=== PATIENT | male | born 1995 | race Caucasian/White ===

== ENCOUNTER 2020-03-08 12:35 | Emergency (ER) | payer SELFPAY ==
[~2020-03-08] VITALS: Ht 157.5 cm; Wt 159.0 kg
[2020-03-08] MEDS ORDERED: IV NORMAL SALINE 1000ML BAG 1,000 ML IV ONE ×2 (13:00→13:45)
--- NOTE | 2020-03-08 13:03 | PHYS DOC ---
Past Medical History Past Medical History: Other Additional Past Medical Histor: ADHD Past Surgical History: No Surgical History Alcohol Use: None Drug Use: None General Adult EDM: Chief Complaint: SEIZURE HPI: HPI: Patient is a 25 year old male who presents with states he took 2 Percocets today and had a seizure that was unwitnessed. States he awoke on the floor. He states he does not have a prescription for Percocets but his cousin gives it to him. He states he usually takes Percocets for pain every day that he gets from his cousin. He states he usually takes 1 or 2. When asked what kind of pain he has been having he states just generally body pain because "sometimes your body hurt when you go through withdrawls". He states he has been not having any fevers and he denies pain incontinence when awaking. He denies any pain at this time. He states this morning he did vomit some bile. He states that a long time ago he had a seizure and he thinks a total of 4 seizures in his lifetime but he does not remember how long ago. He states he does not take any m edications for his seizures. He states he "saw a doctor once" a long time ago but does not know the name of the doctor. He denies doing any other kind of drugs. He states that he has a bad kidney but does not need dialysis and does not know why he has a "bad kidney." Review of Systems: Review of Systems: Neurologic: Syncope. Denies headache, focal weakness or sensory changes. [] Heart Score: Risk Factors: Risk Factors: DM, Current or recent (<one month) smoker, HTN, HLP, family history of CAD, obesity. Risk Scores: Score 0 - 3: 2.5% MACE over next 6 weeks - Discharge Home Score 4 - 6: 20.3% MACE over next 6 weeks - Admit for Clinical Observation Score 7 - 10: 72.7% MACE over next 6 weeks - Early Invasive Strategies Allergies: Allergies: Allergies Coded Allergies Type Severity Reaction Last Updated Verified No Known Drug Allergies 06/30/14 No Physical Exam: PE: Constitutional: Well developed, well nourished, no acute distress, non-toxic appearance. [] HENT: Normocephalic, atraumatic, bilateral external ears normal, oropharynx moist, no oral exudates, nose normal. [] Eyes: PERRLA, EOMI, conjunctiva normal, no discharge. [] Neck: Normal range of motion, no tenderness, supple, no stridor. [] Cardiovascular:Heart rate regular rhythm, no murmur [] Lungs & Thorax: Bilateral breath sounds clear to auscultation [] Abdomen: Bowel sounds normal, soft, no tenderness, no masses, no pulsatile masses. [] Skin: Warm, dry, no erythema, no rash. [] Back: No tenderness, no CVA tenderness. [] Extremities: No tenderness, no cyanosis, no clubbing, ROM intact, no edema. [] Neurologic: Alert and oriented X 3, normal motor function, normal sensory function, no focal deficits noted. [] Psychologic: Affect normal, judgement normal, mood normal. Normal physical exam [] EKG: EK and read by Dr Mejia. Sinus Rhythm and no STEMI[] Radiology/Procedures: Radiology/Procedures: [] Impression: [facility] [address] [place], [place] [id number] IMAGING REPORT Signed PATIENT: ANDERS WILCOX ACCOUNT: [id number] : 1995 LOCATION: ER AGE: 25 SEX: M EXAM STATUS: REG ER ORD. PHYSICIAN: IDRIS TOSCANO APRN REASON: syncope, fall PROCEDURE: CT HEAD AND CERVICAL SPINE WO CT Head W/O Contrast: History: Syncope and fall Comparison: none Axial images were obtained without contrast. The alicea and white matter appears normal and symmetrical for the patients age. There is no mass effect, extraaxial fluid collections or hydrocephalus. There is no gross bleed. There is no focal loss of alicea-white matter distinction to suggest acute ischemia, i.e. stroke. Impression: No acute findings. End impression CT C-Spine without contrast: Clinical History: Syncope and fall Technique: Axial helical images of the cervical spine were obtained without contrast, axial coronal and sagittal reconstruction was performed. Findings: There is no loss of vertebral body stature. There is no prevertebral soft tissue swelling. The vertebral bodies are well aligned. The C1-C2 relationship is normal. The visualized osseous structures appear normal. There is straightening of the normal cervical lordosis which can be positional or can be secondary to muscle spasm. Evaluation of the central canal is limited without contrast. Impression: No acute findings. Clinical correlation suggested. PQRS Compliance Statement: One or more of the following individualized dose reduction techniques were utilized for this examination: 1. Automated exposure control 2. Adjustment of the mA and/or kV according to patient size 3. Use of iterative reconstruction technique Electronically signed by: Roslyn Fernando III, MD (03/08/2020 1:57 PM) [id number] DICTATED and SIGNED BY: ROSLYN FERNANDO III, MD DATE: 03/08/20 1357 [facility] [address] [place] [address] IMAGING REPORT Signed PATIENT: ANDERS WILCOX ACCOUNT: [id number] : 1995 LOCATION: ER AGE: 25 SEX: M EXAM STATUS: REG ER ORD. PHYSICIAN: IDRIS TOSCANO APRN REASON: syncope PROCEDURE: PORTABLE CHEST 1V INDICATION: Syncope COMPARISON: None. FINDINGS: Single view of chest obtained. No focal airspace consolidation or pulmonary edema. Cardiac silhouette mildly prominent but likely secondary to portable technique. IMPRESSION: * No focal airspace consolidation or edema. Electronically signed by: Areli Carrion MD (03/08/2020 2:01 PM) [id number] DICTATED and SIGNED BY: ARELI CARRION MD DATE: 03/08/20 1401 Course & Med Decision Making: Course & Med Decision Making Pertinent Labs and Imaging studies reviewed. (See chart for details) He is alert and oriented. Speaks in full clear sentences. Ambulatory with a steady gait. Lungs are clear to auscultation all lobes. Patient did not bite his tongue and he is no broken or loose teeth. He has no injuries from the fall. He denies any neck or back pain. And there is no neck or back pain with palpation there is no bruising. Moves all extremities with full range of motion. He states he does not know how long he was unconscious. Skin pink warm and dry. PERRLA. Denies any visual changes, numbness or tingling, chest pain, shortness of air, fever, diarrhea, cough, dizziness, headache, abdominal pain, nausea, vision changes, focal weakness. Patient is positive for cocaine and marijuana. Patient is lactic is 3.1 so he may have had a seizure. Everything is negative in the physical and work-up findings. Patient has been alert and oriented and not had a seizure since he has been here. Patient has no complaints. Vital signs within normal limits. Patient is discharged home and given follow-up care. [] Dragon Disclaimer: Dragon Disclaimer: This electronic medical record was generated, in whole or in part, using a voice recognition dictation system. NIHSS Stroke Scale NIH Stroke Scale: NIH Stroke Scale Response (Comments) Value Level of Consciousness: 0 Alert/Responsive 0 LOC Questions: 0 Answers both correctly 0 LOC Commands: 0 Performs both tasks 0 Best Gaze: 0 Normal 0 Visual: 0 No visual loss 0 Facial Palsy: 0 Normal, symmetrical 0 Motor - Left Arm 0 No drift 0 Motor - Right Arm 0 No drift 0 Motor - Left Leg 0 No drift 0 Motor: Right Leg 0 No drift 0 Limb Ataxia: 0 Absent 0 Sensory: 0 No loss 0 Best Language: 0 Normal 0 Dysathria: 0 Normal 0 Extinction and Inattention: 0 Normal 0 Total 0 Departure Departure Impression: Primary Impression: Elevated lactic acid level Additional Impressions: Cocaine use Marijuana use Disposition: 01 HOME, SELF-CARE Condition: STABLE Referrals: NON,STAFF (PCP) Patient Instructions: Cocaine Abuse-Brief, Drug Abuse and Addiction-SportsMed, Marijuana Abuse-Brief Additional Instructions: Follow up with primary care provider. Drink plenty of fluids and stop taking drugs. IDRIS TOSCANO APRN Mar 08, 2020 13:03
[2020-03-08 13:05] LABS: BASO # 0.1 x10^3/uL (0.0-0.2); BASO % 1 % (0-3); EOS # 0.1 x10^3/uL (0.0-0.7); EOS % 1 % (0-3); HEMOGLOBIN 14.9 g/dL (13.0-17.5); LYMPH # 2.2 x10^3/uL (1.0-4.8); LYMPH % 19 % (24-48); MEAN CORPUSCULAR HEMOGLOBIN 30 pg (25-35); MEAN CORPUSCULAR HGB CONC 34 g/dL (31-37); MEAN CORPUSCULAR VOLUME 89 fL (79-100); MONO # 0.5 x10^3/uL (0.0-1.1); MONO % 4 % (0-9); NEUT # 9.1 x10^3/uL (1.8-7.7); NEUT % 76 % (31-73); PLATELET COUNT 286 x10^3/uL (140-400); RED BLOOD COUNT 4.95 x10^6/uL (4.30-5.70); RED CELL DISTRIBUTION WIDTH 13.9 % (11.5-14.5)
[2020-03-08 13:17] LABS: CALCIUM 8.8 mg/dL (8.5-10.1); CREATININE 0.7 mg/dL (0.7-1.3); GFR 139.8; POTASSIUM 4.4 mmol/L (3.5-5.1); PROTHROMBIN TIME PATIENT 12.8 SEC (11.7-14.0)
[2020-03-08 13:21] LABS: ACETAMIN < 2 mcg/ml (10-30); SALIC 3.9 mg/dL (2.8-20.0)
[2020-03-08 13:23] LABS: ALBUMIN 3.6 g/dL (3.4-5.0); ALBUMIN/GLOBULIN RATIO 0.9 (1.0-1.7); TOTAL BILIRUBIN 0.3 mg/dL (0.2-1.0); TOTAL PROTEIN 7.7 g/dL (6.4-8.2)
[2020-03-08 13:33] LABS: BILIRUBIN,URINE NEGATIVE (NEG); CLARITY,URINE CLEAR; COLOR,URINE YELLOW; NITRITE,URINE NEGATIVE (NEG); PROTEIN,URINE 30 mg/dL (NEG-TRACE)
[2020-03-08 13:39] LABS: BARBITURATES NEG (NEG); BENZODIAZEPINES NEG (NEG); CANNABINOIDS POS (NEG); COCAINE POS (NEG); METHADONE NEG (NEG); OPIATES NEG (NEG); PHENCYCLIDINE NEG (NEG)
[2020-03-08 13:49] LABS: AMPHETAMINE/METHAMPHETAMINE NEG (NEG)
--- NOTE | 2020-03-08 14:00 | RAD ---
CT Head W/O Contrast: History: Syncope and fall Comparison: none Axial images were obtained without contrast. The alicea and white matter appears normal and symmetrical for the patients age. There is no mass effect, extraaxial fluid collections or hydrocephalus. There is no gross bleed. There is no focal loss of alicea-white matter distinction to suggest acute ischemia, i.e. stroke. Impression: No acute findings. End impression CT C-Spine without contrast: Clinical History: Syncope and fall Technique: Axial helical images of the cervical spine were obtained without contrast, axial coronal and sagittal reconstruction was performed. Findings: There is no loss of vertebral body stature. There is no prevertebral soft tissue swelling. The vertebral bodies are well aligned. The C1-C2 relationship is normal. The visualized osseous structures appear normal. There is straightening of the normal cervical lordosis which can be positional or can be secondary to muscle spasm. Evaluation of the central canal is limited without contrast. Impression: No acute findings. Clinical correlation suggested. PQRS Compliance Statement: One or more of the following individualized dose reduction techniques were utilized for this examination: 1. Automated exposure control 2. Adjustment of the mA and/or kV according to patient size 3. Use of iterative reconstruction technique Electronically signed by: Glen Almonte III, MD (03/08/2020 1:57 PM) [id number]
--- NOTE | 2020-03-08 14:03 | RAD ---
INDICATION: Syncope COMPARISON: None. FINDINGS: Single view of chest obtained. No focal airspace consolidation or pulmonary edema. Cardiac silhouette mildly prominent but likely secondary to portable technique. IMPRESSION: * No focal airspace consolidation or edema. Electronically signed by: Scotty Mason MD (03/08/2020 2:01 PM) [id number]
[2020-03-08 14:06] LABS: BACTERIA,URINE 0 /HPF (0-FEW); RBC,URINE 0 /HPF (0-2); WBC,URINE OCC /HPF (0-4)
[2020-03-08 14:42] VITALS: BP 120/75
--- NOTE | 2020-03-08 15:44 | EKG ---
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
== END 2020-03-08 15:10 | disposition home or self-care (01) ==
LOC: ER 12:35
DX: R74.0 Nonspecific elevation of levels of transaminase and lactic acid dehydrogenase [LDH] (principal); R55 Syncope and collapse; R11.10 Vomiting, unspecified; R56.9 Unspecified convulsions; F12.90 Cannabis use, unspecified, uncomplicated; F14.90 Cocaine use, unspecified, uncomplicated; F90.8 Attention-deficit hyperactivity disorder, other type
CPT/HCPCS: 36415; 70450; 71045; 72125; 80053; 80307; 80329; 81001; 83605; 84484; 85025; 85610; 93005; 96360; 99285; G0480; J7030

== ENCOUNTER 2021-04-10 19:52 | Emergency (ER) | payer SELFPAY ==
[~2021-04-10] VITALS: Ht 177.8 cm; Wt 145.0 kg
[2021-04-10 21:05] LABS: AMPHETAMINE/METHAMPHETAMINE NEG (NEG); BARBITURATES NEG (NEG); BENZODIAZEPINES POS (NEG); CANNABINOIDS POS (NEG); COCAINE POS (NEG); METHADONE NEG (NEG); OPIATES NEG (NEG); PHENCYCLIDINE NEG (NEG)
[2021-04-10 21:34] LABS: BASO # 0.1 x10^3/uL (0.0-0.2); BASO % 0 % (0-3); EOS % 0 % (0-3); HEMATOCRIT 49.3 % (39.0-53.0); HEMOGLOBIN 16.9 g/dL (13.0-17.5); LYMPH # 2.2 x10^3/uL (1.0-4.8); LYMPH % 11 % (24-48); MEAN CORPUSCULAR HEMOGLOBIN 31 pg (25-35); MEAN CORPUSCULAR HGB CONC 34 g/dL (31-37); MEAN CORPUSCULAR VOLUME 89 fL (79-100); MONO % 5 % (0-9); NEUT # 17.1 x10^3/uL (1.8-7.7); NEUT % 84 % (31-73); PLATELET COUNT 304 x10^3/uL (140-400); RED BLOOD COUNT 5.53 x10^6/uL (4.30-5.70); RED CELL DISTRIBUTION WIDTH 13.4 % (11.5-14.5); WHITE BLOOD COUNT 20.3 x10^3/uL (4.0-11.0)
[2021-04-10 21:47] LABS: CALCIUM 9.5 mg/dL (8.5-10.1); GFR 91.8; POTASSIUM 3.7 mmol/L (3.5-5.1)
--- NOTE | 2021-04-10 21:52 | RAD ---
Exam: CT head INDICATION: Seizure TECHNIQUE: Sequential axial images through the head were obtained without the administration of IV co ntrast. Exposure: One or more of the following in the visualized dose reduction techniques were utilized for this examination: 1. Automated exposure control 2. Adjustment of the MA and/or KV according to patient size 3. Use of iterative of reconstructive technique Comparisons: None FINDINGS: No focal parenchymal lesion or hemorrhage is identified. There is no midline shift or sulcal effaceme nt. No acute vascular territory infarction is identified. Hunt-white distinction is preserved. The ventricular system is within normal limits without compression hydrocephalus. The basal cisterns are well maintained. The visualized portions of the paranasal sinuses and mastoid air cells are well-pneumatized. No acute fractures. IMPRESSION: No acute intracranial abnormality. Electronically signed by: Dru Nevarez MD (04/10/2021 9:50 PM) VIOLETTE
[2021-04-10 22:00] LABS: BILIRUBIN,URINE NEGATIVE (NEG); CLARITY,URINE CLEAR; COLOR,URINE YELLOW; NITRITE,URINE NEGATIVE (NEG); PH,URINE 6.5 (<5.0-8.0); PROTEIN,URINE 30 mg/dL (NEG-TRACE)
[2021-04-10 22:05] LABS: % BANDS 2 % (0-9); % BASOS 1 % (0-3); % LYMPHS 8 % (24-48); % MONOS 8 % (0-10); % SEGS 81 % (35-66)
[2021-04-10 22:06] LABS: PLT ESTIMATE ADEQUATE (ADEQUATE)
[2021-04-10 22:08] LABS: BACTERIA,URINE 0 /HPF (0-FEW); RBC,URINE 0 /HPF (0-2); WBC,URINE 0 /HPF (0-4)
--- NOTE | 2021-04-10 22:39 | ED.ADGEN ---
Past Medical History Past Medical History: Seizure, Other Additional Past Medical Histor: ADHD Past Surgical History: No Surgical History Smoking Status: Never Smoker Alcohol Use: None Drug Use: None General Adult EDM: Chief Complaint: SEIZURE HPI: HPI: Patient is a 26 year old male, brought to the emergency department by his family, for evaluation following a seizure. Patient reports that his mom told him that he had a seizure when he was standing this evening and he fell to the ground. Family reports that during the seizure the patient's arms developed his body, he began shaking all over and his lips turned blue, the episode lasted approximately 2 to 3 minutes. Family also reports that initially the patient was confused as to what had happened, he is currently alert and oriented x4. Patient reports that he had been drinking alcohol and smoking marijuana thr oughout the day today but reports that this is normal behavior for himself. He denies any other illicit drug use. The patient denies use of synthetic marijuana. He currently denies any headache, vision changes, nausea, vomiting, diarrhea, abdominal pain, numbness, tingling, weakness, dizziness, chest pain, palpitations, or shortness of breath. Patient reports that the last time he had a seizure was approximately 2 weeks ago, he does not take any medications for seizures and he has not been evaluated by a neurologist. Patient complains of an abrasion to the back of the left side of his head, he is unsure when his last tetanus was. He currently denies any pain or complaints. Review of Systems: Review of Systems: Complete ROS is negative unless otherwise noted in HPI. Allergies: Allergies: Allergies Coded Allergies Type Severity Reaction Last Updated Verified No Known Drug Allergies 06/30/14 No Physical Exam: PE: Constitutional: Well developed, well nourished, no acute distress, non-toxic appearance, obese. [] HENT: Normocephalic, atraumatic, bilateral external ears normal, nose normal. [] Eyes: PERRLA, EOMI, conjunctiva normal, no discharge, no nystagmus. [] Neck: Normal range of motion, no stridor. [] Cardiovascular:Heart rate regular rhythm Lungs & Thorax: Respirations even and unlabored, no retractions, no respiratory distress Abdomen: soft, no tenderness Skin: Warm, dry, no erythema, no rash. [] Extremities: No cyanosis, ROM intact, no edema. [] Neurologic: Alert and oriented X 4, normal motor, normal sensory, no focal deficits noted. [] Psychologic: Affect normal, judgement normal, mood normal. [] Current Patient Data: Labs: Laboratory Tests Test 04/10/21 20:48 04/10/21 21:15 Urine Collection Type Unknown Urine Color Yellow Urine Clarity Clear Urine pH 6.5 (<5.0-8.0) Urine Specific [place] >=1.030 (1.000-1.030) Urine Protein 30 mg/dL (NEG-TRACE) Urine Glucose (UA) Negative mg/dL (NEG) Urine Ketones (Stick) Negative mg/dL (NEG) Urine Blood Negative (NEG) Urine Nitrite Negative (NEG) Urine Bilirubin Negative (NEG) Urine Urobilinogen Dipstick 1.0 mg/dL (0.2 mg/dL) Urine Leukocyte Esterase Negative (NEG) Urine RBC 0 /HPF (0-2) Urine WBC 0 /HPF (0-4) Urine Bacteria 0 /HPF (0-FEW) Urine Mucus Mod /LPF Urine Opiates Screen Neg (NEG) Urine Methadone Screen Neg (NEG) Urine Barbiturates Neg (NEG) Urine Phencyclidine Screen Neg (NEG) Urine Amphetamine/Methamphetamine Neg (NEG) Urine Benzodiazepines Screen Pos (NEG) Urine Cocaine Screen Pos (NEG) Urine Cannabinoids Screen Pos (NEG) Urine Ethyl Alcohol Neg (NEG) White Blood Count 20.3 x10^3/uL (4.0-11.0) H Red Blood Count 5.53 x10^6/uL (4.30-5.70) Hemoglobin 16.9 g/dL (13.0-17.5) Hematocrit 49.3 % (39.0-53.0) Mean Corpuscular Volume 89 fL (79-100) Mean Corpuscular Hemoglobin 31 pg (25-35) Mean Corpuscular Hemoglobin Concent 34 g/dL (31-37) Red Cell Distribution Width 13.4 % (11.5-14.5) Platelet Count 304 x10^3/uL (140-400) Neutrophils (%) (Auto) 84 % (31-73) H Lymphocytes (%) (Auto) 11 % (24-48) L Monocytes (%) (Auto) 5 % (0-9) Eosinophils (%) (Auto) 0 % (0-3) Basophils (%) (Auto) 0 % (0-3) Neutrophils # (Auto) 17.1 x10^3/uL (1.8-7.7) H Lymphocytes # (Auto) 2.2 x10^3/uL (1.0-4.8) Monocytes # (Auto) 1.0 x10^3/uL (0.0-1.1) Eosinophils # (Auto) 0.0 x10^3/uL (0.0-0.7) Basophils # (Auto) 0.1 x10^3/uL (0.0-0.2) Segmented Neutrophils % 81 % (35-66) H Band Neutrophils % 2 % (0-9) Lymphocytes % 8 % (24-48) L Monocytes % 8 % (0-10) Basophils % 1 % (0-3) Platelet Estimate Adequate (ADEQUATE) Sodium Level 139 mmol/L (136-145) Potassium Level 3.7 mmol/L (3.5-5.1) Chloride Level 101 mmol/L (98-107) Carbon Dioxide Level 27 mmol/L (21-32) Anion Gap 11 (6-14) Blood Urea Nitrogen 11 mg/dL (8-26) Creatinine 1.0 mg/dL (0.7-1.3) Estimated GFR (Cockcroft-Gault) 91.8 Glucose Level 83 mg/dL (70-99) Calcium Level 9.5 mg/dL (8.5-10.1) Laboratory Tests 04/10/21 21:15 Laboratory Tests 04/10/21 21:15 Vital Signs: Vital Signs Date Time Temp Pulse Resp B/P (MAP) Pulse Ox O2 Delivery O2 Flow Rate FiO2 04/10/21 20:35 97.9 90 20 136/70 (92) 98 Room Air 97.9 EKG: EKG: [] Heart Score: C/O Chest Pain: No Radiology/Procedures: Radiology/Procedures: PROCEDURE: CT HEAD WO CONTRAST Exam: CT head INDICATION: Seizure TECHNIQUE: Sequential axial images through the head were obtained without the administration of IV contrast. Exposure: One or more of the following in the visualized dose reduction techniques were utilized for this examination: 1. Automated exposure control 2. Adjustment of the MA and/or KV according to patient size 3. Use of iterative of reconstructive technique Comparisons: None FINDINGS: No focal parenchymal lesion or hemorrhage is identified. There is no midline shift or sulcal effacement. No acute vascular territory infarction is identified. Hunt-white distinction is preserved. The ventricular system is within normal limits without compression hydrocephalus. The basal cisterns are well maintained. The visualized portions of the paranasal sinuses and mastoid air cells are well-pneumatized. No acute fractures. IMPRESSION: No acute intracranial abnormality. Electronically signed by: Dru Nevarez MD (04/10/2021 9:50 PM) [facility] [] Course & Med Decision Making: Course & Med Decision Making Pertinent Labs and Imaging studies reviewed. (See chart for details) 26-year-old male presents emergency department for evaluation following a seizure. Patient CT revealed no acute findings. Patient had normal vital signs throughout his emergency department stay, there was no further seizure-like activity while in the emergency department. White blood cell count of 20.3 likely due to the seizure activity; BMP was unremarkable; UA was unremarkable; urine drug screen was positive for cocaine, benzodiazepines, and marijuana. I addressed the urine drug screen results with the patient, patient admitted to abuse of benzodiazepines, he reports that he had recently abruptly stopped taking the drugs 2 weeks ago. Patient continued to deny any known cocaine use but does admit to marijuana use. I advised patient that he needs to stop using illicit drugs. I encouraged him to follow-up with Dr. Saunders for further evaluation of seizures. The patient was instructed not to drive or operate any heavy machinery and until he had been evaluated by Dr. Saunders. Patient was instructed to return to the ER if symptoms worsen or fever develop. Patient verbalized an understanding of home care, medications, follow-up, and return to ED instructions and was in agreement with the plan of care. Dragon Disclaimer: Dragon Disclaimer: This electronic medical record was generated, in whole or in part, using a voice recognition dictation system. Departure Departure Impression: Primary Impression: Seizure Disposition: 01 HOME / SELF CARE / HOMELESS Condition: STABLE Referrals: NO PCP (PCP) BAHMAN SAUNDERS MD Patient Instructions: Seizure, Adult, [id number] Additional Instructions: Do not operate a motor vehicle or heavy machinery until you have been evaluated and cleared by a neurologist. I have provided Dr. Saunders's information for follow-up. Please stop using illicit street drugs. Return to the ER if your symptoms worsen or if a fever develops. BERNARDINO LORENZO OIL PROSPECTING OBSERVER April 10, 2021 22:39
[2021-04-10 22:50] VITALS: BP 128/68
[2021-04-10] MEDS: DIPH,PERTUSS(ACELL),TET VAC/PF 0.5 ML SYRINGE. VAX IM ONE (22:52)
== END 2021-04-10 22:50 | disposition home or self-care (01) ==
LOC: ER 19:52
DX: R56.9 Unspecified convulsions (principal); R41.0 Disorientation, unspecified; F90.9 Attention-deficit hyperactivity disorder, unspecified type
CPT/HCPCS: 36415; 70450; 80048; 80307; 81001; 85007; 85025; 90471; 90715; 99285